=== PATIENT | male | born 1970 | race Hispanic/Latino ===

== ENCOUNTER 2018-04-12 10:01 | Emergency (ER) | payer OTHER ==
[~2018-04-12] VITALS: Ht 172.7 cm; Wt 144.7 kg
[~2018-04-12 10:01] MED LIST: CLINDAMYCIN HC150 MG PO; CRESTOR10 MG PO; LEVAQUIN500 MG PO; METOPROLOL SUCC25 MG PO; METOPROLOL SUCC50 MG PO; TAMIFLU75 MG PO; TYLENOL WITH C1 EACH PO; Z.0.BYSTOLIC10 MG PO; Z.0.CRESTOR40 MG PO; Z.1.DOXYCYCLINE HY10 PO
[2018-04-12] MEDS ORDERED: IBUPROFEN 200 MG TAB PO NR (10:30)
[2018-04-12] MEDS ORDERED: ASPIRIN 81 MG CHEW TAB PO ONE (10:30)
[2018-04-12 11:04] LABS: INFLUENZAE A&B ANTIGEN (RAPID) NEGATIVE (NEGATIVE); STREPTOCOCCUS GRP A ANTIGEN NEGATIVE (NEGATIVE)
[2018-04-12 11:05] LABS: BASOPHILS % 0.4 % (0.0-1.0); EOSINOPHILS # (AUTO) 0.2 (0.0-0.4); EOSINOPHILS % 2.8 % (0.0-6.0); HEMATOCRIT 46.2 % (38.2-49.6); HEMOGLOBIN 16.9 g/dL (14.0-18.0); LYMPHOCYTES # (AUTO) 1.3 (1.0-3.2); LYMPHOCYTES % 19.3 % (18.0-39.1); MEAN CORPUSCULAR HEMOGLOBIN 31.3 pg (28-32); MEAN CORPUSCULAR HGB CONC 36.6 g/dL (31-35); MEAN CORPUSCULAR VOLUME 85.6 fL (81-99); MONOCYTES # (AUTO) 0.5 (0.2-0.8); MONOCYTES % 7.3 % (4.4-11.3); NEUTROPHILS # (AUTO) 4.7 (2.1-6.9); NEUTROPHILS % 69.8 % (38.7-80.0); PLATELET COUNT 207 x10e3/uL (140-360); RED CELL DISTRIBUTION WIDTH 13.2 % (11.7-14.4)
[2018-04-12 11:14] LABS: INR 1.06; PROTHROMBIN TIME 14.8 seconds (11.9-14.5)
[2018-04-12 11:15] LABS: PARTIAL THROMBOPLASTIN TIME 32.2 seconds (23.8-35.5)
[2018-04-12 11:26] LABS: ALANINE AMINOTRANSFERASE 44 IU/L (0-55); ALBUMIN 3.8 g/dL (3.5-5.0); ALBUMIN/GLOBULIN RATIO 1.3 (0.8-2.0); ALKALINE PHOSPHATASE 44 IU/L (40-150); ANION GAP 14.8 mmol/L (8-16); BLOOD UREA NITROGEN 13 mg/dL (7-26); BUN/CREATININE RATIO 11 (6-25); CARBON DIOXIDE 24 mmol/L (22-29); CHLORIDE 104 mmol/L (98-107); CREATINE KINASE 559 IU/L (30-200); CREATININE, SERUM 1.14 mg/dL (0.72-1.25); EST GLOMERULAR FILTRATION RATE > 60 ML/MIN (60-); GLUCOSE 173 mg/dL (74-118); MAGNESIUM 2.4 MG/DL (1.3-2.1); POTASSIUM 3.8 mmol/L (3.5-5.1); SODIUM 139 mmol/L (136-145)
[2018-04-12 11:31] LABS: B-TYPE NATRIURETIC PEPTIDE2 13.9 pg/mL (0-100)
--- NOTE | 2018-04-12 19:17 | Diagnostic Imaging Report ---
[id number] EXAMINATION: TEMPORARY INDICATION: Shortness of breath and chest congestion COMPARISON: 03/25/2012 FINDINGS: TUBES and LINES: None. LUNGS: Lungs are well inflated. There is no evidence of pneumonia or pulmonary edema. PLEURA: No pleural effusion or pneumothorax. HEART AND MEDIASTINUM: The cardiomediastinal silhouette is unremarkable. BONES AND SOFT TISSUES: No acute osseous lesion. Soft tissues are unremarkable. UPPER ABDOMEN: No free air under the diaphragm. IMPRESSION: No acute thoracic abnormality. Signed by: Dr. Jax Chino MD on 04/12/2018 7:14 PM
== END 2018-04-12 15:32 | disposition home or self-care (01) ==
LOC: ER 10:01
DX: R50.9 Fever, unspecified (principal); R05 Cough; R06.00 Dyspnea, unspecified; R07.89 Other chest pain; J20.9 Acute bronchitis, unspecified; J06.9 Acute upper respiratory infection, unspecified; J02.9 Acute pharyngitis, unspecified
CPT/HCPCS: 36415; 71046; 80053; 82550; 82553; 83518; 83605; 83735; 83880; 84484; 85025; 85610; 85730; 87070; 87086; 87400; 93005; 99284

== ENCOUNTER 2018-11-11 20:44 | Observation (INO) | payer OTHER ==
[~2018-11-11] VITALS: Ht 172.7 cm; Wt 149.7 kg
--- OUTSIDE RECORDS SUMMARY | 2018-11-11 20:47 | XMS REPORT ---
Author Author [facility] Address Unknown Phone Unavailable Care Team Providers Care Baler Operator Name Role Phone IRAMTRAVON Haydee JEREMIAH Unavailable Unavailable Problems This patient has no known problems. Allergies, Adverse Reactions, Alerts This patient has no known allergies or adverse reactions. Medications This patient has no known medications. Results Test Description Test Time Test Comments Text Results Atomic Results Result Comments CHEST 2 VIEWS 2018-04-12 17:45:00 [place] [address] Patient Name: MALIKA PEDROZA JR MR #: [id number] : 1970 Age/Sex: 47/M Req #: [id number] Adm Physician: Ordered by: LANE BROWN SHOWROOM SALESPERSON Report #: [id number] Location: ER Room/Bed: Procedure: [id number] DX/CHEST 2 VIEWS Exam Date: 04/12/18 Exam Time: 1053 REPORT STATUS: Signed [id number] EXAMINATION: TEMPORARY INDICATION: Shortness of breath and chest congestion COMPARISON: 03/25/2012 FINDINGS: TUBES and LINES: None. LUNGS: Lungs are well inflated. There is no evidence of pneumonia or pulmonary edema. PLEURA: No pleural effusion or pneumothorax. HEART AND MEDIASTINUM: The cardiomediastinal silhouette is unremarkable. BONES AND SOFT TISSUES: No acute osseous lesion. Soft tissues are unremarkable. UPPER ABDOMEN: No free air under the diaphragm. IMPRESSION: No acute thoracic abnormality. Signed by: Dr. Jax Chino MD on 04/12/2018 7:14 PM Dictated By: JAX CHINO MD 13 Transcribed By: CARO on 04/12/181913 COPY TO: LANE BROWN NP
[2018-11-11] MEDS ORDERED: SODIUM CHLORIDE 0.9% 1000ML 1,000 ML IV STA (21:11)
[2018-11-11] MEDS ORDERED: ASPIRIN 81 MG CHEW TAB PO ONE (21:15)
[2018-11-11] MEDS ORDERED: ACETAMINOPHEN 325 MG TAB PO PRN (21:15)
[2018-11-11 21:29] LABS: BASOPHILS % 0.3 % (0.0-1.0); EOSINOPHILS # (AUTO) 0.2 (0.0-0.4); EOSINOPHILS % 1.8 % (0.0-6.0); HEMATOCRIT 48.7 % (38.2-49.6); LYMPHOCYTES # (AUTO) 2.2 (1.0-3.2); LYMPHOCYTES % 15.9 % (18.0-39.1); MEAN CORPUSCULAR HGB CONC 32.9 g/dL (31-35); MEAN CORPUSCULAR VOLUME 91.4 fL (81-99); MONOCYTES % 7.2 % (4.4-11.3); NEUTROPHILS # (AUTO) 10.1 (2.1-6.9); NEUTROPHILS % 73.9 % (38.7-80.0); PLATELET COUNT 228 x10e3/uL (140-360); RED BLOOD COUNT 5.33 x10e6/uL (4.3-5.7); RED CELL DISTRIBUTION WIDTH 13.7 % (11.7-14.4)
[2018-11-11 21:47] LABS: ALANINE AMINOTRANSFERASE 47 IU/L (0-55); ALBUMIN 3.6 g/dL (3.5-5.0); ALBUMIN/GLOBULIN RATIO 1.1 (0.8-2.0); ALKALINE PHOSPHATASE 52 IU/L (40-150); ANION GAP 14.9 mmol/L (8-16); BLOOD UREA NITROGEN 13 mg/dL (7-26); BUN/CREATININE RATIO 13 (6-25); CALCIUM 9.3 mg/dL (8.4-10.2); CARBON DIOXIDE 23 mmol/L (22-29); CHLORIDE 100 mmol/L (98-107); CREATINE KINASE 878 IU/L (30-200); CREATININE, SERUM 0.98 mg/dL (0.72-1.25); EST GLOMERULAR FILTRATION RATE > 60 ML/MIN (60-); GLUCOSE 208 mg/dL (74-118); POTASSIUM 3.9 mmol/L (3.5-5.1); SODIUM 134 mmol/L (136-145)
[2018-11-11 21:54] LABS: B-TYPE NATRIURETIC PEPTIDE2 16.1 pg/mL (0-100)
[2018-11-11] MEDS ORDERED: IOPAMIDOL 370 MG/ML 200 ML INFUS..BTL INJ ONE (22:03)
[2018-11-11] MEDS ORDERED: SODIUM CHLORIDE 0.9% 50ML 50 ML ONE (22:03)
--- NOTE | 2018-11-11 22:42 | Diagnostic Imaging Report ---
EXAMINATION: CT of the chest with contrast, PE protocol. TECHNIQUE: Spiral CT images of the chest were performed from the lung apices through the level of the adrenal glands after the IV administration of 100 cc Isovue-370. Thin section reconstructions were obtained with special concentration on the pulmonary arteries. COMPARISON: Chest radiograph 04/12/2018 CLINICAL HISTORY:Shortness of breath, cough DISCUSSION: Evaluation for pulmonary embolus is significantly limited secondary to suboptimal contrast bolus timing. Vasculature: There is no large filling defect in the main pulmonary artery, or central right or left pulmonary arteries. This examination is nondiagnostic for detection of lobar or segmental pulmonary emboli. No right ventricular dilatation or septal bowing. The pulmonary outflow tract is of normal caliber. No ectasia or aneurysmal dilatation of the thoracic aorta. Great vessel origins are of normal caliber and configuration. Atherosclerotic coronary artery calcifications. Lungs: The lungs show no evidence of consolidation, bronchiectasis, or gross fibrotic change. Respiratory motion artifact slightly limits evaluation of the lung bases. Trachea, mainstem bronchi, and central lobar and segmental bronchi are patent. Airways: As above. Pleura: <There is no evidence of pleural effusion or pneumothorax.> Heart and mediastinum: The thyroid gland is normal. Nonspecific mediastinal lymphadenopathy, with the largest individual node at the right upper paratracheal station measuring 1.5 cm short axis. No axillary or hilar lymphadenopathy. Abdomen: Hepatic parenchyma is diffusely hypoattenuating compatible with steatosis. Otherwise visualized portions of the liver, spleen, and adrenal glands are unremarkable. Bones and soft tissues: No osseous destructive lesions. Mild degenerative disc changes of the lower cervical and thoracic spine. IMPRESSION: Markedly limited study for detection of pulmonary embolic disease secondary to contrast bolus timing as above. No main, right, or left pulmonary embolus. Nondiagnostic for lobar or segmental emboli. No CT findings of right heart strain. No pulmonary parenchymal abnormalities. Mediastinal lymphadenopathy is nonspecific though likely reactive. Follow-up CT scan of the chest in 6 months is suggested to document stability or resolution. Signed by: Dr. Eamon Schwartz M.D. on 11/11/2018 10:39 PM
[2018-11-11] MEDS ORDERED: BENZONATATE200 MG PO (23:17)
[2018-11-11] MEDS ORDERED: AMOX TR-K CLV1 EAC1 PO (23:17)
[2018-11-11] MEDS ORDERED: LEVOFLOXACIN 750MG/D5W 150ML 150 ML IV ONE ×2 (23:30→23:31)
[2018-11-11] MEDS ORDERED: SODIUM CHLORIDE FLUSH 10 ML SYR INJ PRN (23:30)
[2018-11-11] MEDS ORDERED: DEXTROSE 50% SYRINGE 50 ML IV PRN (23:30)
[2018-11-11 23:45] VITALS: BP 133/70
--- NOTE | 2018-11-11 23:45 | NUR ---
Patient received to room 292 via stretcher from the er. vss. patient sob with non productive cough. /nc in use. admit assessment/history complete. noted at the bedside. patient/ instructed to call for assistance when needed.
[2018-11-11 23:49] LABS: ABG HCO3 22 mmol/L (23-28); ABG PCO2 38 mmHg (41-51); ABG PH 7.37 (7.31-7.41); ABG PO2 73 mmHg (80-105)
[2018-11-12] VITALS (9 sets, daily range): BP systolic 132–158; BP diastolic 60–83
[2018-11-12] MEDS ORDERED: DEXTROSE 50% SYRINGE 50 ML IV PRN (03:00)
--- NOTE | 2018-11-12 04:00 | NUR ---
patient appears to be resting quietly. no acute distress noted. remains at the bedside.
--- NOTE | 2018-11-12 07:22 | NUR ---
PATIENT IN BED RESTING WITH HEAD OF BED ELEVATED, NO DISTRESS NOTED. TELEMETRY BOX IN PLACE, O2 IN PLACE VIA N/C. BED IN LOWER POSITION, CALL LIGHT AT REACH.
[2018-11-12] MEDS: INSULIN REGULAR, HUMAN 100 UNIT/1 ML 3ML VIAL SQ SCH ×4 (07:30→21:32)
--- NOTE | 2018-11-12 11:13 | NUR ---
PATIENT NOTED WITH SOB AND WHEEZING. MD NOTIFIED, NEW ORDER RECEIVED.
[2018-11-12 12:27] LABS: BASOPHILS % 0.4 % (0.0-1.0); EOSINOPHILS # (AUTO) 0.3 (0.0-0.4); EOSINOPHILS % 2.3 % (0.0-6.0); HEMATOCRIT 49.9 % (38.2-49.6); HEMOGLOBIN 16.3 g/dL (14.0-18.0); LYMPHOCYTES # (AUTO) 1.9 (1.0-3.2); LYMPHOCYTES % 17.5 % (18.0-39.1); MEAN CORPUSCULAR HEMOGLOBIN 30.1 pg (28-32); MEAN CORPUSCULAR HGB CONC 32.7 g/dL (31-35); MEAN CORPUSCULAR VOLUME 92.2 fL (81-99); MONOCYTES # (AUTO) 0.9 (0.2-0.8); MONOCYTES % 8.8 % (4.4-11.3); NEUTROPHILS # (AUTO) 7.5 (2.1-6.9); PLATELET COUNT 214 x10e3/uL (140-360); RED BLOOD COUNT 5.41 x10e6/uL (4.3-5.7); RED CELL DISTRIBUTION WIDTH 13.6 % (11.7-14.4)
[2018-11-12 15:23] LABS: ANION GAP 14.6 mmol/L (8-16); BLOOD UREA NITROGEN 9 mg/dL (7-26); BUN/CREATININE RATIO 10 (6-25); CALCIUM 9.8 mg/dL (8.4-10.2); CARBON DIOXIDE 26 mmol/L (22-29); CHLORIDE 101 mmol/L (98-107); CREATININE, SERUM 0.87 mg/dL (0.72-1.25); EST GLOMERULAR FILTRATION RATE > 60 ML/MIN (60-); GLUCOSE 133 mg/dL (74-118); POTASSIUM 4.6 mmol/L (3.5-5.1); SODIUM 137 mmol/L (136-145)
--- NOTE | 2018-11-12 16:23 | NUR ---
HARDWARE SALES ASSISTANT IN TO SEE PATIENT, HOME MEDICATIONS RENEWED.
--- NOTE | 2018-11-12 19:37 | History and Physical ---
Dictating H and P for Dr. Mayer. PRIMARY CARE PHYSICIAN: Dr. Audrey Little at [facility] in [place]. CHIEF COMPLAINT: Shortness of breath. HISTORY OF PRESENT ILLNESS: This is a 47-year-old obese male with past medical history of hypertension and high cholesterol, presented to the ER with complaints of shortness of breath and fever. He reports of having dyspnea, cough productive, and fever that started on Friday. He went to his primary care doctor, Dr. Little and was given some cough medication and Augmentin for bronchitis, but reports that he continues to feel worse, so he presented to the ER for further evaluation. He denies any nausea, vomiting, chest pain, chills, abdominal pain, dysuria, diarrhea, or change in LOC. PAST MEDICAL HISTORY: He reports hypertension and high cholesterol. PAST SURGICAL HISTORY: He had some heel spurs and I and D of a boil on his right upper thigh. FAMILY MEDICAL HISTORY: Mother had high cholesterol. Father unknown. SOCIAL HISTORY: He smokes one pack of cigarettes per day. Discussed cessation. He denies any illicit drug use, but drinks alcohol occasionally. He is and lives with family. REVIEW OF SYSTEMS: Shortness of breath and cough. Otherwise, review of system is unremarkable and negative. PHYSICAL EXAMINATION: VITAL SIGNS: Temperature 97.9, pulse is 64, blood pressure 137/78, respirations 22, and SpO2 94% on room air. GENERAL: He is alert, awake, and oriented with no acute distress. NECK: Supple. LUNGS: Mild wheezing in the lower lobes and decreased breath sounds heard. HEENT: PERRLA. CARDIOVASCULAR: Rate and rhythm is normal. No abnormal sounds heard. ABDOMEN: Obese, soft, and nontender. EXTREMITIES: No edema noted. Active ROM. NEUROLOGICAL: Alert, awake, and oriented x3. IMAGING: CAT scan of the chest was done. No PE, but noted lymphedema and advised to have a followup CAT scan in about 3 to 6 months. Findings reported to the patient and at the bedside. Echo was done, but pending results. IMPRESSION: 1. Dyspnea, possibly from bronchitis. 2. Hyponatremia. 3. Elevated CK of 878, likely rhabdo. 4. Hypertension. 5. High cholesterol. PLAN: blood and throat cultures were sent. will continue with IV fluids and IV antibiotics, DuoNebs were started for shortness of breath and cough. We will treat cough as needed. We will check hemoglobin A1c for hyperglycemia to rule out diabetes. Repeat blood work in a.m., bnp was wnl, pending echocardiogram. We will continue current treatment and anticipate discharge home tomorrow if continues to improve. NOE Craft/REGLA /[id number] MTDJosefina
--- NOTE | 2018-11-12 20:45 | NUR ---
Patient is taking shower at this time. Will continue to monitor.
[2018-11-12] MEDS ORDERED: SIMVASTATIN 20 MG TAB PO SCH (21:00)
[2018-11-12] MEDS ORDERED: SIMVASTATIN 40 MG TAB PO SCH (21:00)
[2018-11-12] MEDS: ALBUTEROL/IPRATROPIUM 3 ML NEB NEB SCH (21:15)
[2018-11-13] MEDS ORDERED: ACETAMINOPHEN 325 MG TAB PO PRN (00:15)
[2018-11-13] MEDS: ALBUTEROL/IPRATROPIUM 3 ML NEB NEB SCH ×2 (02:40→07:26)
[2018-11-13 03:55] VITALS: BP 140/89
--- NOTE | 2018-11-13 07:07 | NUR ---
Report given to oncoming nurse,walking round done.
[2018-11-13] MEDS: INSULIN REGULAR, HUMAN 100 UNIT/1 ML 3ML VIAL SQ SCH ×2 (07:30→11:30)
[2018-11-13 08:00] VITALS: BP 127/82
[2018-11-13] MEDS ORDERED: METOPROLOL SUCCINATE 25 MG TAB XL PO SCH (09:00)
[2018-11-13] MEDS ORDERED: METFORMIN HCL500 M1 PO (12:01)
--- NOTE | 2018-11-14 08:01 | Discharge Summary ---
PRIMARY CARE PHYSICIAN: Audrey Little MD with [facility]. CHIEF COMPLAINT: Dyspnea. FINAL DIAGNOSES: 1. Dyspnea and fever due to likely bronchitis. 2. Hypertension. 3. High cholesterol. 4. New onset diabetes. CONSULTANTS: None. PROCEDURES DONE: Echocardiogram with a preliminary report, EF of 65%. Blood culture and urine cultures were negative. HISTORY: Per history and physical. HOSPITAL COURSE: This is a 47-year-old obese male with a history of high blood pressure and high cholesterol, presented to the ER with shortness of breath and fever. Chest x-ray was negative for acute process. CAT scan of the chest was also negative for PE, was noted to have lymphadenopathy for which he was advised to follow up with Dr. Little with his PCP for repeat CT scan in 3 to 6 months. He was started on albuterol. Blood cultures and throat cultures were negative. BNP was 16. Echo with EF 65%, per preliminary report. His today he is feeling much better, he was advised to stop smoking, he was advised to follow up with PCP for a sleep study test for high suspicion of sleep apnea due to obesity. He was also noted to have a new onset of diabetes with a hemoglobin A1c of 6.8, was started on metformin 500 daily. PHYSICAL EXAMINATION: GENERAL: Alert, awake, and oriented with no distress. NECK: Supple. LUNGS: With decreased breath sounds. CARDIOVASCULAR: Heart rate and rhythm is normal. ABDOMEN: Soft and obese. No tenderness. NEUROLOGICAL: Alert, awake, and oriented x3. EXTREMITIES: No edema noted. Active range of motion. CONDITION AT DISCHARGE: Stable and improved. DISCHARGE MEDICATION: Please see the medication reconciliation, added metformin. FOLLOWUP CARE: Follow up with Dr. Little in one week and also follow up with a sleep study to rule out sleep apnea. Dictated by NOE Craft Maria Del Carmen Mayer MD MY/MODL /[id number]
== END 2018-11-13 13:00 | disposition home or self-care (01) ==
LOC: ER 20:44 → ERHOLD 23:19 → MED/SURG3 23:41 → IMCU 11-12 18:42
PROVIDERS: ADMIT Internal Medicine; ATTEND Internal Medicine
DX: J40 Bronchitis, not specified as acute or chronic (principal); I10 Essential (primary) hypertension; E78.00 Pure hypercholesterolemia, unspecified; F17.210 Nicotine dependence, cigarettes, uncomplicated; E66.9 Obesity, unspecified; E87.1 Hypo-osmolality and hyponatremia; M62.82 Rhabdomyolysis; E11.65 Type 2 diabetes mellitus with hyperglycemia; R59.0 Localized enlarged lymph nodes; Z79.84 Long term (current) use of oral hypoglycemic drugs; Z68.43 Body mass index [BMI] 50.0-59.9, adult
CPT/HCPCS: 36415 ×3; 36600; 71260; 80048; 80053; 82550 ×2; 82553; 82805; 82948 ×2; 83036; 83518; 83605; 83880; 84484; 85025 ×2; 87040; 87070; 93005; 93306; 94640 ×3; 96372; 99284; G0378 ×3; J1817; J7030; Q9967

== ENCOUNTER 2021-07-09 08:25 | Observation (INO) | payer OTHER ==
[~2021-07-09] VITALS: Ht 172.7 cm; Wt 149.7 kg
[~2021-07-09 08:25] MED LIST changes: +AMOX TR-K CLV1 EAC1 PO; +BENZONATATE200 MG PO; +METFORMIN HCL500 M1 PO
[2021-07-09 08:53] LABS: BASOPHILS % 0.4 % (0.0-1.0); EOSINOPHILS # (AUTO) 0.2 (0.0-0.4); EOSINOPHILS % 1.5 % (0.0-6.0); HEMATOCRIT 49.6 % (38.2-49.6); HEMOGLOBIN 16.4 g/dL (14.0-18.0); LYMPHOCYTES # (AUTO) 1.7 (1.0-3.2); LYMPHOCYTES % 16.1 % (18.0-39.1); MEAN CORPUSCULAR HEMOGLOBIN 30.1 pg (28-32); MEAN CORPUSCULAR HGB CONC 33.1 g/dL (31-35); MONOCYTES # (AUTO) 0.8 (0.2-0.8); MONOCYTES % 7.2 % (4.4-11.3); NEUTROPHILS # (AUTO) 7.9 (2.1-6.9); NEUTROPHILS % 74.1 % (38.7-80.0); PLATELET COUNT 209 x10e3/uL (140-360); RED BLOOD COUNT 5.45 x10e6/uL (4.3-5.7); RED CELL DISTRIBUTION WIDTH 14.4 % (11.7-14.4)
[2021-07-09 09:17] LABS: INR 1.07; PROTHROMBIN TIME 14.9 seconds (11.9-14.5)
[2021-07-09 09:26] LABS: ALANINE AMINOTRANSFERASE 59 IU/L (0-55); ALBUMIN 3.7 g/dL (3.5-5.0); ALBUMIN/GLOBULIN RATIO 1.2 (0.8-2.0); ALKALINE PHOSPHATASE 40 IU/L (40-150); ANION GAP 12.3 mmol/L (8-16); BLOOD UREA NITROGEN 13 mg/dL (7-26); BUN/CREATININE RATIO 14 (6-25); CALCIUM 8.4 mg/dL (8.4-10.2); CARBON DIOXIDE 23 mmol/L (22-29); CHLORIDE 109 mmol/L (98-107); CREATINE KINASE 177 IU/L (30-200); EST GLOMERULAR FILTRATION RATE 89 ML/MIN (60-); GLUCOSE 126 mg/dL (74-118); MAGNESIUM 2.1 MG/DL (1.3-2.1); POTASSIUM 4.3 mmol/L (3.5-5.1); SODIUM 140 mmol/L (136-145)
[2021-07-09 09:45] LABS: CLARITY,URINE CLEAR (CLEAR); COLOR,URINE YELLOW (YELLOW); KETONES,URINE NEGATIVE (NEGATIVE); LEUKOCYTE ESTERASE ,URINE NEGATIVE (NEGATIVE); NITRITE,URINE NEGATIVE (NEGATIVE); PROTEIN,URINE DIPSTICK NEGATIVE (NEGATIVE); URINE UROBILINOGEN 0.2 mg/dL (0.2 - 1)
[2021-07-09 09:57] LABS: BACTERIA,URINE RARE /HPF; EPITHELIAL CELLS,URINE RARE /LPF; RBC,URINE 0-5 /HPF (0-5); WBC,URINE (MAN) 0-5 /HPF (0-5)
[2021-07-09] MEDS ORDERED: METHYLPREDNISOLONE SOD SUCC 125 MG/2ML VIAL IV STA (09:58)
[2021-07-09] MEDS ORDERED: ALBUTEROL/IPRATROPIUM 3 ML NEB NEB PRN (10:00)
[2021-07-09] MEDS ORDERED: ONDANSETRON HCL INJ 2MG/ML 2ML 2 MG/ML VIAL IV PRN (10:00)
[2021-07-09] MEDS ORDERED: ASPIRIN 81 MG CHEW TAB PO ONE (10:30)
[2021-07-09] MEDS ORDERED: IOPAMIDOL 370 MG/ML 100 ML INFUS..BTL INJ ONE (12:50)
[2021-07-09 14:00] LABS: CREATINE KINASE 154 IU/L (30-200)
[2021-07-09 15:07] VITALS: BP 150/47
[2021-07-09] MEDS ORDERED: METFORMIN HCL500 MG PO (15:10)
[2021-07-09 15:16] VITALS: BP 150/47
[2021-07-09 15:50] VITALS: BP 150/79
[2021-07-09] MEDS: NICOTINE 21 MG/EA PATCH TOP SCH (17:28)
[2021-07-09] MEDS: ASPIRIN 81 MG ENTERIC COATED PO SCH (17:28)
[2021-07-09] MEDS ORDERED: HYDRALAZINE HCL 20 MG/ML VIAL IV PRN (18:00)
[2021-07-09] MEDS ORDERED: ENOXAPARIN SOD INJ 40 MG/0.4 ML SYR SC SCH (18:15)
[2021-07-09 19:00] LABS: CREATINE KINASE 158 IU/L (30-200)
[2021-07-09 20:04] VITALS: BP 156/85
[2021-07-09 21:00] VITALS: BP 156/85
[2021-07-09] MEDS ORDERED: CRESTOR 10MG PO SCH (21:00)
[2021-07-09] MEDS: INSULIN LISPRO 100 UNIT/1 ML 3ML VIAL SQ SCH (21:00)
[2021-07-10] VITALS: BP 151/84
[2021-07-10 04:00] VITALS: BP 140/81
[2021-07-10 06:00] LABS: BASOPHILS % 0.3 % (0.0-1.0); EOSINOPHILS % 0.1 % (0.0-6.0); HEMATOCRIT 49.3 % (38.2-49.6); HEMOGLOBIN 16.3 g/dL (14.0-18.0); LYMPHOCYTES # (AUTO) 2.3 (1.0-3.2); LYMPHOCYTES % 14.1 % (18.0-39.1); MEAN CORPUSCULAR HEMOGLOBIN 30.4 pg (28-32); MEAN CORPUSCULAR HGB CONC 33.1 g/dL (31-35); MEAN CORPUSCULAR VOLUME 91.8 fL (81-99); MONOCYTES # (AUTO) 0.9 (0.2-0.8); MONOCYTES % 5.8 % (4.4-11.3); NEUTROPHILS # (AUTO) 12.6 (2.1-6.9); NEUTROPHILS % 78.8 % (38.7-80.0); PLATELET COUNT 188 x10e3/uL (140-360); RED BLOOD COUNT 5.37 x10e6/uL (4.3-5.7); RED CELL DISTRIBUTION WIDTH 13.9 % (11.7-14.4)
[2021-07-10 06:28] LABS: ALBUMIN 3.5 g/dL (3.5-5.0); ANION GAP 13.2 mmol/L (8-16); CALCIUM 8.4 mg/dL (8.4-10.2); CHOL/HDL RATIO 3.7 (3.9-4.7); CREATININE, SERUM 0.78 mg/dL (0.72-1.25); POTASSIUM 4.2 mmol/L (3.5-5.1)
[2021-07-10 06:40] LABS: CREATINE KINASE 110 IU/L (30-200)
[2021-07-10] MEDS: INSULIN LISPRO 100 UNIT/1 ML 3ML VIAL SQ SCH (07:30)
[2021-07-10 07:51] VITALS: BP 140/81
[2021-07-10 07:58] VITALS: BP 157/83
[2021-07-10] MEDS ORDERED: ASPIRIN 81 MG ENTERIC COATED PO SCH (09:00)
[2021-07-10] MEDS: ASPIRIN 81 MG ENTERIC COATED PO SCH (09:20)
[2021-07-10] MEDS: NICOTINE 21 MG/EA PATCH TOP SCH (09:20)
[2021-07-10] MEDS ORDERED: LASIX20 MG PO (09:38)
[2021-07-10] MEDS ORDERED: ONDANSETRON HCL 4 MG ORAL DISINTEGRATING TAB PO PRN (10:00)
[2021-07-10] MEDS ORDERED: FUROSEMIDE INJ 10 MG/ML 4 ML VIAL IV ONE (10:15)
[2021-07-10 11:25] VITALS: BP 135/79
== END 2021-07-10 11:47 | disposition home or self-care (01) ==
LOC: ER 08:28 → ERHOLD 10:02 → MED/SURG3 14:36
PROVIDERS: ADMIT Internal Medicine; ATTEND Internal Medicine
DX: R07.89 Other chest pain (principal); I10 Essential (primary) hypertension; E66.01 Morbid (severe) obesity due to excess calories; Z68.43 Body mass index [BMI] 50.0-59.9, adult; E78.5 Hyperlipidemia, unspecified; E11.9 Type 2 diabetes mellitus without complications; Z20.822 Contact with and (suspected) exposure to COVID-19; G47.33 Obstructive sleep apnea (adult) (pediatric); F17.200 Nicotine dependence, unspecified, uncomplicated; R59.0 Localized enlarged lymph nodes
CPT/HCPCS: 36415; 70450; 71045; 71260; 80053; 80061; 81001; 82550; 82553; 82948; 83036; 83690; 83735; 83880; 84484; 85025; 85610; 85730; 87086; 93005; 93017; 93306; 94799; 99284; G0378; J1650; J1940; J2930; Q9967; U0002

== ENCOUNTER 2022-06-05 19:17 | Emergency (ER) | payer BC, OTHER ==
[~2022-06-05] VITALS: Ht 172.7 cm; Wt 147.4 kg
[~2022-06-05 19:17] MED LIST changes: +LASIX20 MG PO; +METFORMIN HCL500 MG PO
[2022-06-05] MEDS ORDERED: PROVENTIL HFA6.7 GM INH (22:14)
[2022-06-05] MEDS ORDERED: CETIRIZINE HCL10 M1 PO (22:15)
== END 2022-06-05 23:00 | disposition home or self-care (01) ==
LOC: FSED 19:44
DX: R05.9 Cough, unspecified (principal); J40 Bronchitis, not specified as acute or chronic; J06.9 Acute upper respiratory infection, unspecified; I10 Essential (primary) hypertension; E11.9 Type 2 diabetes mellitus without complications; E78.5 Hyperlipidemia, unspecified; E78.00 Pure hypercholesterolemia, unspecified; Z20.822 Contact with and (suspected) exposure to COVID-19
CPT/HCPCS: 71046; 83518; 87400; 99283; U0002

== ENCOUNTER 2024-01-18 17:26 | Emergency (ER) | payer BC, OTHER ==
[~2024-01-18] VITALS: Ht 172.7 cm; Wt 142.9 kg
[~2024-01-18 17:26] MED LIST changes: +CETIRIZINE HCL10 M1 PO; +PROVENTIL HFA6.7 GM INH
[2024-01-18 17:30] VITALS: TEMP 98.8
[2024-01-18] MEDS: LACTATED RINGER'S 1,000 ML INJ ONE (17:59)
[2024-01-18] MEDS: FAMOTIDINE 20 MG/2 ML VIAL IV ONE (18:00)
[2024-01-18] MEDS: KETOROLAC TROMETHAMINE 30 MG/ML VIAL IV ONE (18:00)
[2024-01-18] MEDS: ONDANSETRON HCL INJ 2MG/ML 2ML 2 MG/ML VIAL IV ONE (18:00)
[2024-01-18 19:13] VITALS: PULSE 62; RESP 18
[2024-01-18] MEDS ORDERED: OMEPRAZOLE40 MG PO (20:11)
[2024-01-18] MEDS ORDERED: ONDANSETRON ODT4 MG PO (20:11)
[2024-01-18] MEDS ORDERED: MAALOX MAXIMUM355 ML PO (20:11)
[2024-01-18 20:20] VITALS: BP 130/69; PULSE 62; RESP 18; TEMP 98.8; O2SAT 96
== END 2024-01-18 20:20 | disposition home or self-care (01) ==
LOC: FSED 17:30
DX: R11.2 Nausea with vomiting, unspecified (principal); K29.70 Gastritis, unspecified, without bleeding; K29.80 Duodenitis without bleeding; E11.65 Type 2 diabetes mellitus with hyperglycemia; R10.13 Epigastric pain; R05.9 Cough, unspecified; R21 Rash and other nonspecific skin eruption; I10 Essential (primary) hypertension; J44.9 Chronic obstructive pulmonary disease, unspecified
CPT/HCPCS: 74176; 80048; 80076; 81003; 85025; 99284; J1885; J2405; J7121

== ENCOUNTER 2024-05-27 18:45 | Emergency (ER) | payer OTHER ==
[~2024-05-27] VITALS: Ht 172.7 cm; Wt 93.0 kg
[~2024-05-27 18:45] MED LIST changes: +MAALOX MAXIMUM355 ML PO; +OMEPRAZOLE40 MG PO; +ONDANSETRON ODT4 MG PO
[2024-05-27 18:50] VITALS: PULSE 62; RESP 18; TEMP 98.5
[2024-05-27] MEDS ORDERED: BENZONATATE100 MG PO (19:29)
[2024-05-27 19:46] VITALS: BP 149/79; PULSE 62; RESP 18; TEMP 98.5; O2SAT 97
== END 2024-05-27 19:45 | disposition home or self-care (01) ==
LOC: FSED 18:50
DX: R05.9 Cough, unspecified (principal); J06.9 Acute upper respiratory infection, unspecified; I10 Essential (primary) hypertension; E11.9 Type 2 diabetes mellitus without complications; J44.9 Chronic obstructive pulmonary disease, unspecified; E78.5 Hyperlipidemia, unspecified; E78.00 Pure hypercholesterolemia, unspecified; Z11.52 Encounter for screening for COVID-19
CPT/HCPCS: 0223U; 83518 ×2; 87400; 99283